=== PATIENT | male | born 1970 | race Caucasian/White ===

== ENCOUNTER 2020-05-30 10:44 | Outpatient (CLI) | payer OTHER ==
--- NOTE | 2020-05-30 12:30 | XRay Report ---
ABDOMEN 2 VIEWS INDICATION / CLINICAL INFORMATION: ABDOMINAL DISTENSION; ABDOMINAL PAIN. COMPARISON: None available. FINDINGS: TUBES / LINES: None. BOWEL GAS PATTERN: There is a moderate amount of stool throughout the colon. I see no evidence of bow el obstruction or mass effect. FREE AIR / EXTRALUMINAL GAS: None seen. ADDITIONAL FINDINGS: There is partial sacralization of L5 on the left. CHEST: Visualized chest shows no significant abnormality. IMPRESSION: No acute abnormality. Signer Name: Hugh Anne MD Signed: 05/30/2020 12:24 PM Workstation Name: [id number]
== END 2020-05-30 10:45 | disposition home or self-care (01) ==
LOC: XRAY 10:44
DX: R14.0 Abdominal distension (gaseous) (principal); R19.5 Other fecal abnormalities; R10.9 Unspecified abdominal pain
CPT/HCPCS: 74019